=== PATIENT | female | born 1965 | race African-American/Black ===

== ENCOUNTER 2017-02-23 18:18 | Emergency (ER) | payer OTHER ==
[~2017-02-23] VITALS: Ht 167.6 cm; Wt 87.5 kg
[2017-02-23 18:28] VITALS: Ht 167.6 cm; Wt 87.5 kg
[2017-02-23] MEDS ORDERED: SOD CHLORIDE 0.9% 2,000 ML IV STA (18:47)
[2017-02-23] MEDS ORDERED: LACTATED RINGER'S 1,000 ML IV STA (18:47)
[2017-02-23 19:43] LABS: ADD SCAN DIFF NO
[2017-02-23 19:44] LABS: ABNORMAL IP MESSAGE 1; BASOPHILS % 0.3 % (0.0-2.0); EOSINOPHILS # 0.1 10^3/ul (0.0-0.5); EOSINOPHILS % 1.3 % (0.0-7.0); HEMATOCRIT 35.9 % (37.0-47.0); HEMOGLOBIN 11.1 g/dl (12.0-16.0); LYMPHOCYTES # 2.2 10^3/ul (0.8-2.9); LYMPHOCYTES % 28.3 % (15.0-51.0); MEAN CORPUSCULAR HEMOGLOBIN 23.3 pg (29.0-33.0); MEAN CORPUSCULAR HGB CONC 30.9 g/dl (32.0-37.0); MEAN CORPUSCULAR VOLUME 75.3 fl (82.0-101.0); MONOCYTE # 0.5 10^3/ul (0.3-0.9); MONOCYTES % 5.8 % (0.0-11.0); NEUTROPHILS % 63.9 % (39.0-77.0); RED BLOOD COUNT 4.77 10^6/ul (4.20-5.40); WHITE BLOOD COUNT 7.8 10^3/ul (4.8-10.8)
[2017-02-23 19:57] LABS: POTASSIUM 5.1 mmol/L (3.5-5.1)
[2017-02-23 20:00] LABS: CALCIUM 9.3 mg/dl (8.4-10.2)
[2017-02-23] MEDS ORDERED: INSULIN LISPRO 100 UNIT/ML VIAL SC STA (20:12)
[2017-02-23] MEDS ORDERED: SS SC (20:16)
[2017-02-23] MEDS ORDERED: NPH,100I5 SQ (20:16)
[2017-02-23] MEDS ORDERED: [UNRECOGNIZED DRUG - CODE] MC (20:16)
[2017-02-23 20:21] LABS: PLATELET COUNT 239 10^3/UL (140-415)
[2017-02-23 20:25] LABS: ADD UMIC YES; URINE BILIRUBIN (Dip) NEGATIVE (NEGATIVE); URINE BLOOD (Dip) TRACE (NEGATIVE); URINE COLOR LT. YELLOW (YELLOW); URINE GLUCOSE (Dip) >=1000 % (NEGATIVE); URINE KETONES (Dip) 40 (NEGATIVE); URINE LEUKOCYTE ESTERASE (Dip) NEGATIVE (NEGATIVE); URINE NITRITE (Dip) NEGATIVE (NEGATIVE); URINE TOTAL PROTEIN (Dip) NEGATIVE (NEGATIVE); URINE UROBILINOGEN (Dip) 0.2 E.U./dL (0.1-1.0)
--- NOTE | 2017-02-23 20:39 | ERD ---
ER Documentation Chief Complaint Date/Time DATE: 02/23/17 TIME: 20:36 Chief Complaint Fatigue and weak. HX of DM no meds for 3 months. HPI Patient is a 52-year-old female with diabetes who presents with high blood sugar. The patient says that she ran out of her insulin last night. She has had no insulin today. She felt some burning of the eyes and back pain but no other symptoms. She has had no fevers. Upon review of old medical records this is the patient's first visit to the emergency department. She does not currently have a primary doctor as she is trying to get her insurance straightened out. She takes NPH and regular insulin. ROS All systems reviewed and are negative except as per history of present illness. Medications Home Meds Active Scripts Blood Sugar Diagnostic (ACCUTREND GLUCOSE) 1 Each Strip, 1 EACH MC TID, #100 STRIP Prov:BRUNA DEJESUS MD 02/23/17 Insulin Human Regular (Novolin-R U-100) 100 Unit/Ml Soln, 10 UNITS SC AC MEALS, #1 EA Prov:BRUNA DEJESUS MD 02/23/17 NPH, Human Insulin Isophane (Humulin N Kwikpen) 100 Unit/1 Ml Insuln.pen, 45 UNIT SQ DAILY, #1 EA Prov:BRUNA DEJESUS MD 02/23/17 Allergies Allergies: Coded Allergies: No Known Allergy (Unverified , 02/23/17) PMhx/Soc Medical and Surgical Hx: pt denies Surgical Hx Hx Miscellaneous Medical Probl: Yes (DM) Hx Alcohol Use: No Hx Substance Use: No Hx Tobacco Use: No Smoking Status: Never smoker FmHx Family History: diabetes Physical Exam Vitals Vital Signs Date Time Temp Pulse Resp B/P Pulse Ox O2 Delivery O2 Flow Rate FiO2 02/23/17 18:28 98.4 102 20 147/68 98 Physical Exam Const: No acute distress Head: Atraumatic Eyes: Normal Conjunctiva ENT: Normal External Ears, Nose and Mouth. Neck: Full range of motion..~ No meningismus. Resp: Clear to auscultation bilaterally Cardio: Regular rate and rhythm, no murmurs Abd: Soft, non tender, non distended. Normal bowel sounds Skin: No petechiae or rashes Back: No midline or flank tenderness Ext: No cyanosis, or edema Neur: Awake and alert Psych: Normal Mood and Affect Result Diagram: 02/23/17190702/23/171907 Results 24 hrs Laboratory Tests Test 02/23/17 18:33 02/23/17 18:49 02/23/17 19:08 Bedside Glucose > 595mg/dL > 595mg/dL White Blood Count 7.810^3/ul Red Blood Count 4.7710^6/ul Hemoglobin 11.1g/dl Hematocrit 35.9% Mean Corpuscular Volume 75.3fl Mean Corpuscular Hemoglobin 23.3pg Mean Corpuscular Hemoglobin Concent 30.9g/dl Red Cell Distribution Width 13.0% Platelet Count 36810^3/UL Mean Platelet Volume fl Neutrophils % 63.9% Lymphocytes % 28.3% Monocytes % 5.8% Eosinophils % 1.3% Basophils % 0.3% Nucleated Red Blood Cells % 0.0/100WBC Neutrophils # 5.010^3/ul Lymphocytes # 2.210^3/ul Monocytes # 0.510^3/ul Eosinophils # 0.110^3/ul Basophils # 0.010^3/ul Nucleated Red Blood Cells # 0.010^3/ul Sodium Level 129mmol/L Potassium Level 5.1mmol/L Chloride Level 91mmol/L Carbon Dioxide Level 21mmol/L Anion Gap 22 Blood Urea Nitrogen 25mg/dl Creatinine 1.00mg/dl Glucose Level 690mg/dl Calcium Level 9.3mg/dl Current Medications Medications (Trade) Dose Ordered Sig/Armando Route PRN Reason Start Time Stop Time Status Last Admin Dose Admin Sodium Chloride 2,000 ml @ 1,000 mls/hr Q2H STAT IV 02/23/17 18:47 02/23/17 20:46 02/23/17 19:11 Lactated Ringer's (Lr) 1,000 ml @ 1,000 mls/hr Q1H STAT IV 02/23/17 18:47 02/23/17 19:46 DC 02/23/17 20:22 Insulin Human Lispro (Humalog) 20 unit ONCE STAT SC 02/23/17 20:12 02/23/17 20:32 DC Procedures/MDM Patient is a 52-year-old female with diabetes who presents with high blood sugar. The patient had a full workup to rule out diabetic ketoacidosis. Her bicarbonate is normal and I do not think she has diabetic ketoacidosis. Her sugar is elevated at 690 and she does have pseudohyponatremia. The patient has anemia with a hemoglobin of 11.1 but does not require transfusion. She was given 2 L of normal saline 1 L of lactated Ringer's as well as 20 units of Humalog subcutaneously. I believe outpatient management is appropriate as her sugar has improved. She can follow-up with the local clinics for reevaluation within 24-48 hours. She is otherwise well-appearing. The patient will be given a prescription for NPH, regular insulin, and a glucometer with glucose strips. Departure Diagnosis: Primary Impression: Hyperglycemia Additional Impressions: Hyponatremia Anemia Anemia type: unspecified type Qualified Code: D64.9 - Anemia, unspecified type Condition: Fair Patient Instructions: Hyperglycemia (High Blood Sugar) Referrals: [facility] YOU HAVE RECEIVED A MEDICAL SCREENING EXAM AND THE RESULTS INDICATE THAT YOU DO NOT HAVE A CONDITION THAT REQUIRES URGENT TREATMENT IN THE EMERGENCY DEPARTMENT. FURTHER EVALUATION AND TREATMENT OF YOUR CONDITION CAN WAIT UNTIL YOU ARE SEEN IN YOUR DOCTORS OFFICE WITHIN THE NEXT 1-2 DAYS. IT IS YOUR RESPONSIBILITY TO MAKE AN APPOINTMENT FOR [facility]. IF YOU HAVE A PRIMARY DOCTOR --you should call your primary doctor and schedule an appointment IF YOU DO NOT HAVE A PRIMARY DOCTOR YOU CAN CALL OUR PHYSICIAN REFERRAL HOTLINE AT IF YOU CAN NOT AFFORD TO SEE A PHYSICIAN YOU CAN CHOSE FROM THE FOLLOWING [facility] [address] [facility]. [facility] [address] [facility] [facility] [address] [facility] [facility] [address]. [facility] [address] [facility]. [facility]. [address] Additional Instructions: Call your primary care doctor TOMORROW for an appointment during the next 1-2 days.See the doctor sooner or return here if your condition worsens before your appointment time. BRUNA DEJESUS MD Feb 23, 2017 20:38
[2017-02-23 20:56] LABS: SQUAMOUS EPITHELIAL CELL,UR RARE; URINE RBCS 0-2 /HPF (0)
[2017-02-24 00:19] VITALS: BP 139/70; PULSE 68; RESP 16; TEMP 98.1
== END 2017-02-24 00:21 | disposition home or self-care (01) ==
LOC: E/R 18:18
DX: E11.65 Type 2 diabetes mellitus with hyperglycemia (principal); E87.1 Hypo-osmolality and hyponatremia; D64.9 Anemia, unspecified; Z79.4 Long term (current) use of insulin
CPT/HCPCS: 36415; 80048; 81001; 81003; 82962; 83605; 85025; 96372; 99284; J1815; J7030; J7120